=== PATIENT | male | born 1960 | race Caucasian/White ===

== ENCOUNTER 2019-01-30 08:51 | Emergency (ER) | payer SELFPAY ==
[2019-01-30 09:11] VITALS: BP 122/51
--- NOTE | 2019-01-30 09:19 | UC ---
Back Pain HPI - HPI Summary HPI Summary: "I got drilled with a softball" in R low back while pitching last pm. 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 - History of Current Complaint Chief Complaint: UCBackPain Stated Complaint: BACK INJURY Time Seen by Provider: 01/30/19 09:03 Hx Obtained From: Patient Onset/Duration: Sudden Onset Timing: Constant Pain Intensity: 8 Aggravating Factor(s): Movement Alleviating Factor(s): Nothing Associated Signs And Symptoms: Positive: Swelling - R low back, Other - no saddle anesthesia. Negative: Weakness, Numbness, Tingling, Abdominal Pain, Flank Pain, Bladder Incontinence, Bowel Incontinence - Risk Factors AAA Risk Factors: Smoking - remote TAD Risk Factors: Smoking - remote Cauda Equina Risk Factors: Negative Epidural Abscess Risk Factors: Negative - Allergies/Home Medications Allergies/Adverse Reactions: Allergies Allergy/AdvReac Type Severity Reaction Status Date / Time No Known Allergies Allergy Verified 01/30/19 09:11 Home Medications: Home Medications Methocarbamol TAB* [Robaxin 500 MG TAB*] 750 mg PO TID PRN 01/30/19 [History Confirmed 01/30/19] PMH/Surg Hx/FS Hx/Imm Hx - Additional Past Medical History Additional PMH: LEONORA, occasional back pain-disc disease that tx's with Robaxin. - Surgical History Surgical History: Yes Surgery Procedure, Year, and Place: appy - Family History Known Family History: Positive: Non-Contributory - Social History Alcohol Use: Rare Substance Use Type: None Smoking Status (MU): Former Smoker Review of Systems All Other Systems Reviewed And Are Negative: No Constitutional: Negative: Fever Respiratory: Negative: Shortness Of Breath, Cough Cardiovascular: Negative: Palpitations Gastrointestinal: Negative: Abdominal Pain Genitourinary: Negative: Hematuria Musculoskeletal: Positive: Decreased ROM - low back from pain Neurological: Negative: Weakness, Paresthesia, Numbness Physical Exam Triage Information Reviewed: Yes Appearance: Pain Distress - hold R low back Vital Signs: Initial Vital Signs Temp 98 F 01/30/19 09:04 Pulse 67 01/30/19 09:04 Resp 16 01/30/19 09:04 BP 122/51 01/30/19 09:04 Pulse Ox 97 01/30/19 09:04 Vital Signs Reviewed: Yes Eyes: Positive: Conjunctiva Clear ENT: Positive: Normal ENT inspection Neck: Positive: Supple, Nontender, No Lymphadenopathy, Other: - c-spine non tender. Respiratory: Positive: Lungs clear, Normal breath sounds, No respiratory distress Cardiovascular: Positive: RRR, No Murmur Abdomen Description: Positive: Nontender, No Organomegaly, Soft. Negative: CVA Tenderness (R), CVA Tenderness (L), Distended, Guarding, Pulsatile Mass Bowel Sounds: Positive: Present Musculoskeletal: Positive: Other: - Back: swelling R side of back in lumbar region and mm spasm with movement. tender over same R low back. thoracic and lumbar spine non tender. ROM limited to both regions due to R low back spasms. no saddle anesthesia. 5/5 strength, 2+ reflexes and sensation intact x4. negative straight leg raises x2. Neurological: Positive: Alert Psychological: Positive: Age Appropriate Behavior Skin Exam: Normal Skin: Negative: Rashes Diagnostics - Laboratory Lab Results: u/a=2+ protein, trace blood, trace ketones, 1+ bilirubin. Back Pain Course/Dx - Course Course Of Treatment: NO HITS ON THE [facility]. - Differential Dx/Diagnosis Differential Diagnosis/HQI/PQRI: Other - no concern for acute abdomen including TAA, AAA or renal contusion/laceration. no concern for cauda equina, fx or infection. Provider Diagnosis: Traumatic hematoma of lower back, Spasm of muscle of lower back, Proteinuria Discharge - Sign-Out/Discharge Documenting (check all that apply): Patient Departure All imaging exams completed and their final reports reviewed: No Studies - Discharge Plan Condition: Stable Disposition: HOME Prescriptions: HYDROcodone/ACETAMIN 5-325 MG* [[place] 5-325 TAB*] 1 tab PO Q6H PRN #12 tab MDD 4 PRN Reason: Pain - Back Patient Education Materials: Muscle Spasm (ED), Hematoma (ED) Referrals: No Primary Care Phys,NOPCP [Primary Care Provider] - Additional Instructions: [facility]KE [facility] 3 [facility] THEN NEEDED. [facility] 5 DAYS. ADVISED OF 2+ PROTEIN IN URINE ON THIS VISIT. GO TO THE ER FOR ANY WORSENING. - Billing Disposition and Condition Condition: STABLE Disposition: Home - Attestation Statements Provider Attestation: I was available for consult. This patient was seen by the AYANNA. The patient was not presented to , seen by or examined by me Prince Ralph MD
== END 2019-01-30 09:50 | disposition home or self-care (01) ==
LOC: EDSEX 08:51 → UCCORT 08:51
DX: S30.0XXA Contusion of lower back and pelvis, initial encounter (principal); W21.07XA Struck by softball, initial encounter; Y93.64 Activity, baseball; Y92.9 Unspecified place or not applicable; M62.830 Muscle spasm of back; R80.9 Proteinuria, unspecified; Z87.891 Personal history of nicotine dependence
CPT/HCPCS: 81003; 99202; G0463